=== PATIENT | male | born 1985 | race Caucasian/White ===

== ENCOUNTER 2017-09-10 16:41 | Emergency (ER) | payer BC ==
[2017-09-10] MEDS ORDERED: methylPREDNISolone SOD SUCCI 125 MG/2 ML VIAL IV STA (17:42)
[2017-09-10] MEDS ORDERED: IPRATROPIUM-ALBUTEROL 3 ML NEB INHALATION STA (17:42)
--- NOTE | 2017-09-10 17:48 | ED ---
SOB HPI - General Chief Complaint: Shortness of Breath Stated Complaint: Asthma Time Seen by Provider: 09/10/17 17:38 Source: patient, RN notes reviewed, old records reviewed Mode of arrival: ambulatory Limitations: no limitations - History of Present Illness Initial Comments: This is a 32 year old male with history of asthma presents with 2 days of shortness of breath. Patient had a history of asthma and reports he is not getting better without albuterol inhalers. Patient reports that he is out of his steroid inhaler. Patient reports that he had some upper respiratory congestion and a few days ago but that seems to resolve this time. Patient reports nonproductive cough. He reports he has not had asthma exacerbation such as this in many years. He is a nonsmoker. No significant medical history , besides asthma. Patient denies any recent fever, chills, chest pain, back pain, abdominal pain, nausea vomiting, numbness or tingling, dysuria or hematuria, constipation or diarrhea, headaches or visual changes, or any other current symptoms MD Complaint: shortness of breath Onset/Timin -: days(s) - Related Data Home Medications Medication Instructions Recorded Confirmed Albuterol Inhaler [Ventolin Hfa 1 - 2 puff INHALATION Q6HR PRN 09/10/17 09/10/17 Inhaler] Budesonide/Formoterol Fumarate 1 puff PO BID 09/10/17 09/10/17 [Symbicort 160-4.5 Mcg Inhaler] Previous Rx's Medication Instructions Recorded Albuterol Inhaler [Ventolin Hfa 1 - 2 puff INHALATION Q6HR PRN #1 09/10/17 Inhaler] inhaler Budesonide/Formoterol Fumarate 2 puff INHALATION BID #1 inhaler 09/10/17 [Symbicort 160-4.5 Mcg Inhaler] predniSONE 50 mg PO DAILY #7 tab 09/10/17 Allergies Allergy/AdvReac Type Severity Reaction Status Date / Time No Known Allergies Allergy Verified 09/10/17 17:09 Review of Systems ROS Statement: Those systems with pertinent positive or pertinent negative responses have been documented in the HPI. ROS Other: All systems not noted in ROS Statement are negative. Past Medical History Past Medical History: Asthma History of Any Multi-Drug Resistant Organisms: None Reported Past Surgical History: Bariatric Surgery Past Psychological History: No Psychological Hx Reported Smoking Status: Never smoker Past Alcohol Use History: None Reported Past Drug Use History: None Reported General Exam - General Exam Comments Initial Comments: This is a 32 year old male, no distress. Limitations: no limitations General appearance: alert, in no apparent distress Head exam: Present: atraumatic, normocephalic, normal inspection Eye exam: Present: normal appearance, PERRL, EOMI. Absent: scleral icterus, conjunctival injection, periorbital swelling ENT exam: Present: normal exam, mucous membranes moist Neck exam: Present: normal inspection. Absent: tenderness, meningismus, lymphadenopathy Respiratory exam: Present: wheezes (significant wheezing noted without using stethoscope). Absent: normal lung sounds bilaterally, respiratory distress, rales, rhonchi, stridor Cardiovascular Exam: Present: regular rate, normal rhythm, normal heart sounds. Absent: systolic murmur, diastolic murmur, rubs, gallop, clicks GI/Abdominal exam: Present: soft, normal bowel sounds. Absent: distended, tenderness, guarding, rebound, rigid Extremities exam: Present: normal inspection, full ROM, normal capillary refill. Absent: tenderness, pedal edema, joint swelling, calf tenderness Back exam: Present: normal inspection Neurological exam: Present: alert Psychiatric exam: Present: normal affect, normal mood Skin exam: Present: warm, dry, intact, normal color. Absent: rash Course Vital Signs 09/10/17 09/10/17 09/10/17 17:02 17:46 17:58 Temperature 98.4 F Pulse Rate 74 66 68 Respiratory 20 18 18 Rate Blood Pressure 148/75 O2 Sat by Pulse 98 Oximetry 09/10/17 18:01 Temperature Pulse Rate 70 Respiratory 17 Rate Blood Pressure O2 Sat by Pulse 97 Oximetry - Reevaluation(s) Reevaluation #1: 09/10/17 18:46 Reevaluated after double DuoNeb treatment, his wheezing is now diminished. Patient reports he feels better at this time. Medical Decision Making - Medical Decision Making Is a 32-year-old male presents emergency department today she might have an asthma exacerbation. He has audible wheezing without auscultation of the stethoscope on initial presentation. Patient was given a double DuoNeb treatment, and IV Solu-Medrol. Patient is reevaluated after the breathing treatment and is much better at this time. Wheezing is diminished. Patient reports that he feels full relief. Patient chest x-rays reviewed and negative for any acute process. White blood cell count is within the normal limits, CMP is also reviewed and negative for any abnormalities. Patient's request a refill the Symbicort inhaler. I'll give the patient a refill the Symbicort inhaler as well as start him on a steroid dose for the next week. Patient agrees to follow-up with his primary care provider. Discussed returning if there is any worsening signs or symptoms. Patient agrees to treatment plan will comply. Return parameters were discussed. - Lab Data Result diagrams: 09/10/17 17:28 09/10/17 17:28 Lab Results 09/10/17 09/10/17 Range/Units 17:28 17:28 WBC 6.1 (3.8-10.6) k/uL RBC 4.80 (4.30-5.90) m/uL Hgb 14.1 (13.0-17.5) gm/dL Hct 40.9 (39.0-53.0) % MCV 85.3 (80.0-100.0) fL MCH 29.5 (25.0-35.0) pg MCHC 34.6 (31.0-37.0) g/dL RDW 15.2 (11.5-15.5) % Plt Count 165 (150-450) k/uL Neutrophils % 48 % Lymphocytes % 36 % Monocytes % 4 % Eosinophils % 9 % Basophils % 1 % Neutrophils # 2.9 (1.3-7.7) k/uL Lymphocytes # 2.2 (1.0-4.8) k/uL Monocytes # 0.3 (0-1.0) k/uL Eosinophils # 0.6 (0-0.7) k/uL Basophils # 0.0 (0-0.2) k/uL Sodium 143 (137-145) mmol/L Potassium 4.1 (3.5-5.1) mmol/L Chloride 107 (98-107) mmol/L Carbon Dioxide 26 (22-30) mmol/L Anion Gap 10 mmol/L BUN 10 (9-20) mg/dL Creatinine 0.92 (0.66-1.25) mg/dL Est GFR (MDRD) Af Amer >60 (>60 ml/min/1.73 sqM) Est GFR (MDRD) Non-Af >60 (>60 ml/min/1.73 sqM) Glucose 90 (74-99) mg/dL Calcium 9.4 (8.4-10.2) mg/dL Total Bilirubin 0.4 (0.2-1.3) mg/dL AST 55 (17-59) U/L ALT 64 (21-72) U/L Alkaline Phosphatase 50 (38-126) U/L Total Protein 7.5 (6.3-8.2) g/dL Albumin 4.3 (3.5-5.0) g/dL Disposition Clinical Impression: Asthma exacerbation Disposition: HOME SELF-CARE Condition: Good Instructions: Asthma (ED) Additional Instructions: Patient advised to use complete the steroid dose for the next week as well as researcher Symbicort inhaler as well as use albuterol inhaler as needed for shortness of breath. Patient should follow-up with a primary care provider as well as ppap coordinator. Return to emergency department if any alarming signs or symptoms occur. Prescriptions: Albuterol Inhaler [Ventolin Hfa Inhaler] 1 - 2 puff INHALATION Q6HR PRN #1 inhaler PRN Reason: Shortness Of Breath Budesonide/Formoterol Fumarate [Symbicort 160-4.5 Mcg Inhaler] 2 puff INHALATION BID #1 inhaler predniSONE 50 mg PO DAILY #7 tab Referrals: None,Stated [Primary Care Provider] - 1-2 days Yajaira Roach MD [STAFF PHYSICIAN] - 1-2 days Time of Disposition: 18:48
[2017-09-10 18:06] LABS: Basophils % (A) 1 %; Eosinophils # (A) 0.6 k/uL (0-0.7); Eosinophils % (A) 9 %; HCT 40.9 % (39.0-53.0); HGB 14.1 gm/dL (13.0-17.5); Lymphocytes # (A) 2.2 k/uL (1.0-4.8); Lymphocytes % (A) 36 %; MCH 29.5 pg (25.0-35.0); MCHC 34.6 g/dL (31.0-37.0); MCV 85.3 fL (80.0-100.0); Mean Platelet Volume 7.2; Monocytes # (A) 0.3 k/uL (0-1.0); Monocytes % (A) 4 %; Neutrophils # (A) 2.9 k/uL (1.3-7.7); Neutrophils % (A) 48 %; Platelet Count 165 k/uL (150-450); RDW 15.2 % (11.5-15.5); WBC 6.1 k/uL (3.8-10.6)
[2017-09-10 18:22] LABS: ALT 64 U/L (21-72); AST 55 U/L (17-59); Albumin 4.3 g/dL (3.5-5.0); Alkaline Phosphatase 50 U/L (38-126); Anion Gap 10 mmol/L; Blood Urea Nitrogen 10 mg/dL (9-20); Calcium 9.4 mg/dL (8.4-10.2); Carbon Dioxide 26 mmol/L (22-30); Chloride 107 mmol/L (98-107); Glucose 90 mg/dL (74-99); Potassium 4.1 mmol/L (3.5-5.1); Sodium 143 mmol/L (137-145); Total Bilirubin 0.4 mg/dL (0.2-1.3); Total Protein 7.5 g/dL (6.3-8.2)
--- NOTE | 2017-09-10 18:44 | XR ---
EXAMINATION TYPE: XR chest 2V DATE OF EXAM: 09/10/2017 COMPARISON: NONE HISTORY: Shortness of breath and chest pain TECHNIQUE: Frontal and lateral views of the chest are obtained. FINDINGS: There is no focal air space opacity, pleural effusion, or pneumothorax seen. The cardiac silhouette size is within normal limits. The osseous structures are intact. Minimal degenerative ch anges are seen of the thoracic spine. IMPRESSION: No acute cardiopulmonary process.
[2017-09-10 19:17] VITALS: BP 158/69; PULSE 63; RESP 16; TEMP 97
== END 2017-09-10 19:15 | disposition home or self-care (01) ==
LOC: EC 16:41
DX: J45.901 Unspecified asthma with (acute) exacerbation (principal); Z76.0 Encounter for issue of repeat prescription; Z79.51 Long term (current) use of inhaled steroids; Z79.899 Other long term (current) drug therapy
CPT/HCPCS: 36415; 94640; 80053; 85025; 71020; 99285; 96374; J2930

== ENCOUNTER 2018-07-26 00:31 | Emergency (ER) | payer BC ==
[2018-07-26 00:38] VITALS: BP 185/95; PULSE 76; RESP 18; TEMP 98
--- NOTE | 2018-07-26 00:48 | ED ---
Wound/Laceration HPI - General Chief Complaint: Wound/Laceration Stated Complaint: Toe Laceration, Upper Resp Time Seen by Provider: 07/26/18 00:41 Source: patient Mode of arrival: ambulatory Limitations: no limitations - History of Present Illness Initial Comments: Vishal is a 33-year-old gentleman who presents to the emergency department today for evaluation of a laceration to his right fourth toe. Patient reports that he got up during the night to walk to the restroom to take some medication for his cough. He reports that while walking he stepped on one of his child's toys. He did experience pain in his right toe but wasn't concerned by it. He reports that he returned to bed and laid down, he then felt that his foot was wet and when his turn on the light noted that his socket soaked through with blood there is blood all over his sheets. At that time he decided to come to the ER for further evaluation. Patient reports that his tetanus was last updated 2-2-1/2 years ago when his was with her youngest child. - Related Data Home Medications Medication Instructions Recorded Confirmed Albuterol Inhaler [Ventolin Hfa 1 - 2 puff INHALATION Q6HR PRN 09/10/17 09/10/17 Inhaler] Budesonide/Formoterol Fumarate 1 puff PO BID 09/10/17 09/10/17 [Symbicort 160-4.5 Mcg Inhaler] Previous Rx's Medication Instructions Recorded Albuterol Inhaler [Ventolin Hfa 1 - 2 puff INHALATION Q6HR PRN #1 09/10/17 Inhaler] inhaler Budesonide/Formoterol Fumarate 2 puff INHALATION BID #1 inhaler 09/10/17 [Symbicort 160-4.5 Mcg Inhaler] predniSONE 50 mg PO DAILY #7 tab 09/10/17 Allergies Allergy/AdvReac Type Severity Reaction Status Date / Time No Known Allergies Allergy Verified 07/26/18 00:38 Review of Systems ROS Statement: Those systems with pertinent positive or pertinent negative responses have been documented in the HPI. ROS Other: All systems not noted in ROS Statement are negative. Past Medical History Past Medical History: Asthma History of Any Multi-Drug Resistant Organisms: None Reported Past Surgical History: Bariatric Surgery Past Psychological History: No Psychological Hx Reported Smoking Status: Never smoker Past Alcohol Use History: None Reported Past Drug Use History: None Reported General Exam - General Exam Comments Initial Comments: Physical Exam GENERAL: Patient is well-developed and well-nourished. Patient is nontoxic and well- hydrated and is in no distress. HENT: Normocephalic, Atraumatic. EYES: PERRL, EOMI PULMONARY: Unlabored respirations. No audible rales rhonchi or wheezing was noted. CARDIOVASCULAR: There is a regular rate and rhythm without any murmurs gallops or rubs. ABDOMEN: Soft and nontender with normal bowel sounds. SKIN: Plantar surface of the right fourth toe at the MTP joint with a superficial laceration, appears to be a skin tear likely secondary to hyperextension of the toe, no pain in the toe swelling Grecia no active bleeding : Deferred NEUROLOGIC: Patient is alert and oriented x3. Moving all extremities spontaneously MUSCULOSKELETAL: Normal extremities with adequate strength and full range of motion. No lower extremity swelling or edema. No calf tenderness. PSYCHIATRIC: Normal psychiatric evaluation. Limitations: no limitations Limitations: no limitations Course Vital Signs 07/26/18 00:35 Temperature 98.0 F Pulse Rate 76 Respiratory 18 Rate Blood Pressure 185/95 O2 Sat by Pulse 98 Oximetry Procedures - Laceration Laceration #1 Consent Obtained: verbal consent Time Out Performed: Yes Indication: laceration Site: foot Size (cm): 1 Description: linear Pre-repair: wound explored Type of Sutures: other (Skin glue) Patient Tolerated Procedure: well, no complications Medical Decision Making - Medical Decision Making The patient was seen and evaluated history was obtained from the patient, the toe was evaluated, foot was cleansed with Betadine solution. Toe was repaired with skin glue. Patient tolerated the procedure well. Supportive care was discussed with the patient. All questions pertaining to care were answered best my ability patient was discharged home in stable condition. Disposition Clinical Impression: Laceration Disposition: HOME SELF-CARE Condition: Good Instructions: Skin Adhesive Care (ED) Is patient prescribed a controlled substance at d/c from ED?: No Referrals: None,Stated [Primary Care Provider] - 1-2 days
[2018-07-26] MEDS ORDERED: TOPICAL SKIN ADHESIVE 1 EACH AMP TOPICAL ONE (00:50)
== END 2018-07-26 01:17 | disposition home or self-care (01) ==
LOC: EC 00:31
DX: S91.114A Laceration without foreign body of right lesser toe(s) without damage to nail, initial encounter (principal); J45.909 Unspecified asthma, uncomplicated; W22.8XXA Striking against or struck by other objects, initial encounter; Y93.01 Activity, walking, marching and hiking; Y92.89 Other specified places as the place of occurrence of the external cause
CPT/HCPCS: 12001; 99282

== ENCOUNTER → 2019-09-16 | Outpatient (CLI) | payer OTHER ==
[2019-09-16 11:41] LABS: Basophils % (A) 0 %; Eosinophils # (A) 0.3 k/uL (0-0.7); Eosinophils % (A) 5 %; HGB 14.2 gm/dL (13.0-17.5); Lymphocytes % (A) 33 %; MCHC 32.3 g/dL (31.0-37.0); MCV 86.8 fL (80.0-100.0); Mean Platelet Volume 6.9; Monocytes # (A) 0.3 k/uL (0-1.0); Monocytes % (A) 5 %; Neutrophils # (A) 3.3 k/uL (1.3-7.7); Neutrophils % (A) 55 %; Platelet Count 167 k/uL (150-450); RBC 5.07 m/uL (4.30-5.90); RDW 13.5 % (11.5-15.5); WBC 6.1 k/uL (3.8-10.6)
[2019-09-16 16:44] LABS: % Iron Saturation 20.12 (15.00-50.00); African American GFR (CKD) 127.8 (60.0-200.0); Albumin 4.2 g/dL (3.80-4.90); Albumin/Globulin Ratio 1.68 (1.60-3.17); Anion Gap 8.8 mmol/L (4.00-12.00); BUN/Creat Ratio 11.11 Ratio (12.00-20.00); Carbon Dioxide 28.2 mmol/L (21.6-31.8); Chol/HDL Ratio 3.19; Globulin 2.5 g/dL (1.6-3.3); Non-African American GFR(CKD) 110.3 (60.0-200.0); Potassium 4.2 mmol/L (3.5-5.5); Total Bilirubin 0.6 mg/dL (0.2-1.2); Total Protein 6.7 g/dL (6.2-8.2)
== END | disposition home or self-care (01) ==
LOC: LABWHC1 11:17
PROVIDERS: ATTEND Nurse Practitioner Adult Health
DX: I10 Essential (primary) hypertension (principal); F41.1 Generalized anxiety disorder; E66.9 Obesity, unspecified; F33.9 Major depressive disorder, recurrent, unspecified
CPT/HCPCS: 36415; 80053; 80061; 82306; 82607; 83540; 83550; 84402; 84403; 84443; 85025

== ENCOUNTER → 2020-11-13 | Outpatient (CLI) | payer OTHER ==
--- NOTE | 2020-11-13 13:51 | CONS ---
CONSULTATION DATE OF SERVICE: 11/13/2020 A 35-year-old gentleman had been evaluated in the sleep center for possible obstructive sleep apnea-hypopnea syndrome and some abnormal movements with his arms during the sleep. 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 until 7:30 p.m. On days off, he sleeps from 9 p.m. to 8:30 a.m. No problems with falling asleep. No TV in bedroom. He usually sleeps on the side position. He has multiple awakenings from sleep and several episodes of nocturia. Positive history of loud snoring, witnessed episodes of stopped breathing during the sleep, episodes of gasping for air, sweating, panic attacks. The patient according to his raises his arm in air during sleep and this looks like that he does have some out of dream movements. In the morning, patient wakes up tired, has difficulties to pay attention, falling asleep during the day, worry about his sleep. He has episodes of irritability, depression, anxiety, sexual dysfunction. [place] Sleepiness Scale in extremely high range of 19. The patient may take one nap. No history of vivid dreams in naps. No history of hypnagogic hallucinations. PAST MEDICAL HISTORY: Positive for asthma, anxiety, depression. PAST SURGICAL HISTORY: Gastric sleeve surgery in 2016. After the surgery, patient lost weight, but then increase weight again and developed his sleep problems again. MEDICATIONS: Venlafaxine 150 mg once a day in the morning, furosemide 20 mg once a day, quetiapine 50 mg at bedtime. SOCIAL HISTORY: Negative for smoking or using alcohol. FAMILY HISTORY: Hypertension, cancer, restless legs. REVIEW OF SYSTEMS: Loud snoring, episodes of stopped breathing, multiple awakenings from sleep. Mood changes. PHYSICAL EXAMINATION: GENERAL: Extremely obese 35-year-old gentleman without distress. VITAL SIGNS: BP 164/81, HR 74, RR 12, height 5 feet 11-1/2 inches, weight 445.4 pounds with a body mass index 62, temperature 97.0, oxygen saturation at room air 95%. HEENT: PERRLA, EOMI. Oropharynx low position of soft palate, extremely wide neck 22 inches in circumference. NECK: Supple, no JVD. Thyroid is not palpable. LUNGS: Clear to percussion and to auscultation. Good air exchange. No wheezing or rhonchi. HEART: S1, S2 regular. No murmurs, gallops, or rubs. ABDOMEN: Obese. EXTREMITIES: No clubbing or cyanosis. SUBGRADE TESTER: Awake, alert, and oriented X3. Cranial nerves 2 to 7 intact. There is no fasciculation or atrophy. noted. No focal deficits observed. IMPRESSION: 1. Loud snoring, witnessed episodes of stopped breathing during sleep. Small oropharyngeal air space, wide neck, extremely high sleepiness, obstructive sleep apnea-hypopnea syndrome. 2. Possible episodes of out of dream movements with putting arm up, possibly REM sleep behavioral disorder. 3. Morbid obesity, body mass index 62. 4. Hypertension in the office. 5. Asthma. 6. History of anxiety. 7. History of depression. 8. Status post gastric sleeve in 2016 with losing weight, but then patient increase his weight again. PLAN: 1. Polysomnography for evaluation of patient's breathing during sleep. 2. CPAP/BiPAP titration if sleep study confirms obstructive sleep apnea-hypopnea syndrome. 3. Preferable position during sleep on the side. 4. No driving if patient feels any sleepiness. 5. I will see patient for follow up visit to explain results of testing and following plan. Thank you very much for referring this patient for consultation. Sincerely, Yossi Hughes MD, PhD, FAASM Diplomat of [employer] [employer] [employer] [facility] MMODL / IJN: [id number] /
== END ==
CPT/HCPCS: 99211

== ENCOUNTER 2020-12-30 07:00 | Outpatient (CLI) | payer OTHER | END 2020-12-30 16:00 | disposition home or self-care (01) | LOC: SLEEP 07:00 | PROVIDERS: ATTEND Internal Medicine | DX: G47.33 Obstructive sleep apnea (adult) (pediatric) (principal) | CPT/HCPCS: 95811 ==